=== PATIENT | male | born 1990 | race Caucasian/White ===

== ENCOUNTER → 2016-10-27 | Outpatient (CLI) | payer BC, OTHER ==
--- NOTE | 2016-10-27 09:01 | DIAGNOSTIC IMAGING REPORT ---
CERVICAL SPINE 7 VIEWS CLINICAL HISTORY: Chronic neck pain. History of remote cervical spine fracture. FINDINGS: AP, lateral, bilateral oblique, flexion, extension, and odontoid views of the cervical spine are compared to study dated 02/01/2014 and correlated with MRI of the cervical spine dated . The skeletal structures are well mineralized. There is no radiographic evidence of fracture or subluxation. The odontoid process and lateral masses appear intact on the open mouth view. The spinolaminar line is preserved. Vertebral body height and alignment are maintained. There is straightening of the cervical lordosis. No bony subluxation was induced on the flexion/extension views. The spinous processes appear intact. The intervertebral disc spaces are normal. There is no evidence of neuroforaminal stenosis on the oblique views. The prevertebral soft tissues are within normal limits. Visualized apical lung parenchyma appears clear. IMPRESSION: Unremarkable radiographic assessment of the cervical spine. Electronically signed by: Francis Maldonado M.D. 10/27/2016 9:00 AM Dictated Date/Time: 10/27/2016 8:58 AM
== END | disposition home or self-care (01) ==
LOC: C.RDSM 12:19
PROVIDERS: ATTEND Family Medicine
DX: M54.2 Cervicalgia (principal)